=== PATIENT | male | born 2000 | race Caucasian/White ===

== ENCOUNTER 2019-07-26 12:50 | Inpatient (IN) ==
[2019-07-26 13:33] LABS: Basophils # (auto) 0.02 K/uL (0-0.2); Basophils % (auto) 0.2 %; Eosinophils # (auto) 0.24 K/uL (0-0.5); Eosinophils % (auto) 2.6 %; Hematocrit (blood only) 48.7 % (42-52); Hemoglobin 16.6 g/dL (14.0-18.0); Immature Granulocytes # (auto) 0.03 K/uL (0.00-0.02); Immature Granulocytes % (auto) 0.3 %; Lymphocytes # (auto) 2.27 K/uL (1.2-3.4); Lymphocytes % (auto) 24.5 %; Mean Corpuscular Hgb Conc 34.1 g/dL (32-36); Monocytes # (auto) 0.72 K/uL (0.11-0.59); Monocytes % (auto) 7.8 %; Neutrophils # (auto) 5.98 K/uL (1.4-6.5); Neutrophils % (auto) 64.6 %; Platelet Count 253 K/uL (130-400); RDW Coefficient of Variation 13.5 % (11.5-14.5); RDW Standard Deviation 41.6 fL (36.4-46.3); Red Blood Count 5.73 M/uL (4.7-6.1); White Blood Count 9.26 K/uL (4.8-10.8)
--- NOTE | 2019-07-26 13:44 | Emergency Department Note ---
History of Present Illness General Chief complaint: Mental Health Evaluation Stated complaint: SUICIDAL Time Seen by Provider: 07/26/19 13:01 History of Present Illness Provider complaint: Suicidal ideation. Onset (ago): week(s) 1 18-year-old male presents emergency department for suicidal ideation. Patient reports he was in feet suicidal for the last week. He states he feels depressed but only having 3 friends and states he hates his job at [employer]. 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 Patient denies any history of mental health illness or any mental health hospitalizations. He denies any changes in sleeping pattern, loss of interest, feeling guilty, changes in energy level, decreased concentration ability, change his appetite. He denies any homicidal or suicidal ideation. Patient does state he has access to many firearms. Home Medications Home Medications Medication Instructions Recorded Confirmed Type No Known Home Medications 07/26/19 07/26/19 History Allergies Allergy/AdvReac Type Severity Reaction Status Date / Time No Known Allergies Allergy Unverified 07/26/19 13:13 Past Med/Surg History Medical History (Updated 07/26/19 @ 16:28 by Levi Francois) No pertinent family history No pertinent past medical history Surgical History (Updated 07/26/19 @ 13:43 by Levi Francois) No pertinent past surgical history Social History Feels Safe at Home: Yes Smoking Status: Never smoker Review of Systems A total of 10 systems reviewed and were otherwise negative Physical Exam Vital Signs Vital Signs - 24 hr 07/26/19 12:55 07/26/19 15:20 Temperature 37.1 C Temperature Source Oral Pulse Rate 91 H Pulse Rate [Finger] 70 Respiratory Rate 20 18 Respiratory Effort / Characteristics Non-Labored Respiratory Depth Normal Blood Pressure 155/95 H Blood Pressure [Left Arm] 144/82 H Blood Pressure Mean 115 Blood Pressure Mean [Left Arm] 102 Pulse Oximetry 98 98 Oxygen Delivery Method Room Air Room Air Sepsis Recent Fever Within 48 Hours No Sepsis Action Taken by Nursing No Action Required Physical Exam GENERAL: Disheveled, dirty, and foul-smelling. HENT: Exam performed. - Head: Normocephalic and atraumatic. - Right Ear: External ear normal. No mastoid tenderness. - Left Ear: External ear normal. No mastoid tenderness. - Mouth/Throat: The oropharynx is clear and moist. No trismus in the jaw. No dental abscesses or uvula swelling. No oropharyngeal exudate or tonsillar abscesses. EYES: Conjunctivae and EOM are normal. Pupils are equal, round, and reactive to light. Right eye exhibits no discharge. Left eye exhibits no discharge. No scleral icterus. NECK: Normal range of motion. Neck supple. No JVD present. No spinous process tenderness present. No carotid bruit present. No rigidity. No tracheal deviation and normal range of motion present. No Brudzinski's sign and no Kernig's sign noted. CV: Normal rate, regular rhythm, normal heart sounds and intact distal pulses. There is no peripheral edema. Palpable radial pulses bue. PULM/CHEST: Effort normal and breath sounds normal. No respiratory distress. No stridor. He has no wheezes. He has no rales. - Chest Wall: He exhibits no tenderness. ABD: The abdomen is soft. Bowel sounds are normal. He has no distension. No mass is present. There is no tenderness. There is no rebound, no guarding, no Sue's sign and no tenderness at McBurney's point. Rovsig negative. MUSC/SKEL: Normal range of motion. There is no peripheral edema, tenderness or deformity. LYMPH: No cervical adenopathy. NEURO: He is alert and oriented to person, place, and time. He has normal strength. No cranial nerve deficit or sensory deficit. Coordination and gait normal. GCS eye subscore is 4. GCS verbal subscore is 5. GCS motor subscore is 6. Cerebellar tests wnl. SKIN: Skin is warm and dry. He is not diaphoretic. PSYCH: Appears depressed, positive for suicidal ideation. Course Course 1335: The patient was evaluated in room A6. A complete history and physical exam was performed. 1357: Labs within normal limits. Patient medically cleared. Patient will be evaluated by psychiatric gut snatcher. Patient placed in observation at this time. 1617: Patient admitted to the psychiatric floor. Medical Decision Making Laboratory Data Result diagrams: 07/26/19 13:20 07/26/19 13:20 Lab Results 07/26/19 07/26/19 07/26/19 Range/Units 13:05 13:05 13:20 WBC 9.26 (4.8-10.8) K/uL RBC 5.73 (4.7-6.1) M/uL Hgb 16.6 (14.0-18.0) g/dL Hct 48.7 (42-52) % MCV 85.0 (80-100) fL MCH 29.0 (25-34) pg MCHC 34.1 (32-36) g/dL RDW Std Deviation 41.6 (36.4-46.3) fL RDW Coeff of Ulices 13.5 (11.5-14.5) % Plt Count 253 (130-400) K/uL MPV 11.0 H (7.4-10.4) fL Immature Gran % (Auto) 0.3 % Neut % (Auto) 64.6 % Lymph % (Auto) 24.5 % [place]erry % (Auto) 7.8 % Eos % (Auto) 2.6 % Baso % (Auto) 0.2 % Immature Gran # (Auto) 0.03 H (0.00-0.02) K/uL Neut # (Auto) 5.98 (1.4-6.5) K/uL Lymph # (Auto) 2.27 (1.2-3.4) K/uL [place] # (Auto) 0.72 H (0.11-0.59) K/uL Eos # (Auto) 0.24 (0-0.5) K/uL Baso # (Auto) 0.02 (0-0.2) K/uL Sodium (136-145) mmol/L Potassium (3.5-5.1) mmol/L Chloride (98-107) mmol/L Carbon Dioxide (21-32) mmol/L Anion Gap (3-11) BUN (7-18) mg/dl Creatinine (0.6-1.4) mg/dl Est Cr Clr Drug Dosing ml/min Est GFR ( Amer) Est GFR (Non-Af Amer) BUN/Creatinine Ratio (10-20) Glucose (70-99) mg/dl Calcium (8.5-10.1) mg/dl Total Bilirubin (0.2-1) mg/dl AST (15-37) U/L ALT (12-78) U/L Alkaline Phosphatase (45-117) U/L Total Protein (6.4-8.2) gm/dl Albumin (3.4-5.0) gm/dl Globulin (2.5-4.0) gm/dl Albumin/Globulin Ratio (0.9-2) TSH (0.300-4.500) uIu/ml Urine Color Yellow Urine Appearance Clear (Clear) Urine pH 5.5 (4.5-7.5) Ur Specific [place] 1.024 (1.000-1.030) Urine Protein Negative (Negative) Urine Glucose (UA) Negative (Negative) Urine Ketones Negative (Negative) Urine Blood Negative (Negative) Urine Nitrite Negative (Negative) Urine Bilirubin Negative (Negative) Urine Urobilinogen Negative (Negative) Ur Leukocyte Esterase Negative (Negative) Salicylates (2.8-20) mg/dl Urine Opiates Screen Neg (Neg) Ur Methadone, Qual Neg (Neg) Acetaminophen (10-30) ug/ml Urine Barbiturates Neg (Neg) Ur Phencyclidine (PCP) Neg (Neg) U Amphetamin/Meth Scrn Neg (Neg) MDMA (Ecstasy) Screen Neg (Neg) U Benzodiazepines Scrn Neg (Neg) Ur Cocaine Metabolite Neg (Neg) U Marijuana (THC) Screen Neg (Neg) Ethyl Alcohol mg/dL (0-3) mg/dl 07/26/19 07/26/19 07/26/19 Range/Units 13:20 13:20 13:20 WBC (4.8-10.8) K/uL RBC (4.7-6.1) M/uL Hgb (14.0-18.0) g/dL Hct (42-52) % MCV (80-100) fL MCH (25-34) pg MCHC (32-36) g/dL RDW Std Deviation (36.4-46.3) fL RDW Coeff of Ulices (11.5-14.5) % Plt Count (130-400) K/uL MPV (7.4-10.4) fL Immature Gran % (Auto) % Neut % (Auto) % Lymph % (Auto) % [place] % (Auto) % Eos % (Auto) % Baso % (Auto) % Immature Gran # (Auto) (0.00-0.02) K/uL Neut # (Auto) (1.4-6.5) K/uL Lymph # (Auto) (1.2-3.4) K/uL [place] # (Auto) (0.11-0.59) K/uL Eos # (Auto) (0-0.5) K/uL Baso # (Auto) (0-0.2) K/uL Sodium 142 (136-145) mmol/L Potassium 3.9 (3.5-5.1) mmol/L Chloride 108 H (98-107) mmol/L Carbon Dioxide 28 (21-32) mmol/L Anion Gap 6.0 (3-11) BUN 15 (7-18) mg/dl Creatinine 0.86 (0.6-1.4) mg/dl Est Cr Clr Drug Dosing 172.9 ml/min Est GFR ( Amer) 145.7 Est GFR (Non-Af Amer) 125.7 BUN/Creatinine Ratio 17.5 (10-20) Glucose 104 H (70-99) mg/dl Calcium 9.5 (8.5-10.1) mg/dl Total Bilirubin 0.5 (0.2-1) mg/dl AST 28 (15-37) U/L ALT 72 (12-78) U/L Alkaline Phosphatase 108 (45-117) U/L Total Protein 7.8 (6.4-8.2) gm/dl Albumin 4.3 (3.4-5.0) gm/dl Globulin 3.5 (2.5-4.0) gm/dl Albumin/Globulin Ratio 1.2 (0.9-2) TSH 1.210 (0.300-4.500) uIu/ml Urine Color Urine Appearance (Clear) Urine pH (4.5-7.5) Ur Specific [place] (1.000-1.030) Urine Protein (Negative) Urine Glucose (UA) (Negative) Urine Ketones (Negative) Urine Blood (Negative) Urine Nitrite (Negative) Urine Bilirubin (Negative) Urine Urobilinogen (Negative) Ur Leukocyte Esterase (Negative) Salicylates < 1.7 L (2.8-20) mg/dl Urine Opiates Screen (Neg) Ur Methadone, Qual (Neg) Acetaminophen < 2 L (10-30) ug/ml Urine Barbiturates (Neg) Ur Phencyclidine (PCP) (Neg) U Amphetamin/Meth Scrn (Neg) MDMA (Ecstasy) Screen (Neg) U Benzodiazepines Scrn (Neg) Ur Cocaine Metabolite (Neg) U Marijuana (THC) Screen (Neg) Ethyl Alcohol mg/dL < 3.0 (0-3) mg/dl MDM Narrative Observation note Indication: Psych eval/placement Patient, with no significant past medical history was first seen at 1335 hrs and the observation time began at 1357 hrs and was necessary in order to have psych evaluation completed . Upon re-evaluation, 2 hours and 20 minutes hours of observation revealed that the patient should be admitted to the psychiatric floor 3 S. Disposition date and time July 26, 2019 1617. Impression & Plan Depression with suicidal ideation Discharge Plan Visit Data Chief Complaint: Mental Health Evaluation Stated Complaint: SUICIDAL ED Provider: Levi Francois Discharge Problem: Depression with suicidal ideation Patient Disposition: Admitted As Inpatient Forms Stand Alone Forms: [facility], Suicide Prevention Resources Prescriptions Prescriptions: No Action No Known Home Medications RF: 0 Referrals Referrals: PCP,NO [Primary Care Provider] -
[2019-07-26 13:45] LABS: Appearance Urine Clear (Clear); Bilirubin Urine Negative (Negative); Blood Urine Negative (Negative); Color Urine Yellow; Glucose Urine UA Negative (Negative); Ketones Urine Negative (Negative); Leukocyte Esterase Urine Negative (Negative); Nitrite Urine Negative (Negative); Protein Urine Negative (Negative); Specific Gravity Urine 1.024 (1.000-1.030); Urobilinogen Urine Negative (Negative); pH Urine 5.5 (4.5-7.5)
[2019-07-26 13:54] LABS: Acetaminophen < 2 ug/ml (10-30); Albumin Level 4.3 gm/dl (3.4-5.0); BUN Creatinine Ratio 17.5 (10-20); Calcium 9.5 mg/dl (8.5-10.1); Creatinine Clr Calc Pharmacy 172.9 ml/min; Est GFR (African American) 145.7; Est GFR (Non-African American) 125.7; Potassium 3.9 mmol/L (3.5-5.1); Salicylate < 1.7 mg/dl (2.8-20)
[2019-07-26 13:58] LABS: Amphetamines+Metham, Urine Neg (Neg); Barbiturates, Urine Neg (Neg); Benzodiazepine, Urine Neg (Neg); Cocaine, Urine Neg (Neg); MDMA (Ecstacy), Urine Neg (Neg); Methadone, Urine Neg (Neg); Opiate, Urine Neg (Neg); Phencyclidine, Urine Neg (Neg)
[2019-07-26 14:04] LABS: Albumin Globulin Ratio 1.2 (0.9-2); Bilirubin,Total 0.5 mg/dl (0.2-1); Globulin 3.5 gm/dl (2.5-4.0); Thyroid Stimulating Hormone 1.21 uIu/ml (0.300-4.500); Total Protein 7.8 gm/dl (6.4-8.2)
[2019-07-26] MEDS ORDERED: SODIUM CHLORIDE 0.65% NA SOLN 45 ML (OCEAN) PRN (17:44)
[2019-07-26] MEDS ORDERED: MAGNESIUM HYDROXIDE SUSP 30 ML UDC PO PRN (17:44)
[2019-07-26] MEDS ORDERED: ACETAMINOPHEN 325 MG TAB PO PRN (17:44)
[2019-07-26] MEDS ORDERED: BISMUTH SUBSALICYLATE PER ML OMNICELL CHARGE PO PRN (17:44)
[2019-07-26] MEDS ORDERED: ALUMINUM/MAGNESIUM SUSP 30 ML UDC PO PRN (17:44)
--- NOTE | 2019-07-27 11:49 | History & Physical ---
Date of Service July 27, 2019 Impression / Recommendations Impression 18 yo male with vegetative symptoms of depression and recurrent thoughts of cutting. He denies any history of manic symptoms. There is a family history of bipolar disorder. He is ambivalent about medication at this time given oral sensitivities with high functioning autism spectrum disorder. (1) Depression with suicidal ideation: The patient was admitted to the [facility] on q15 min checks (behavioral with suicide precautions) for safety. The patient will participate in group, recreational, and milieu therapies and will be offered additional individual and family sessions as clinically appropriate. Discussed a possible trial of Wellbutrin vs Prozac, will check with family if preference of antidepressant, Prozac does have long t 1/2 should he become activated, Effexor XR also a capsule should he refuse Wellbutrin. Patient then stated he though he's taken that before. Inventory Assets Strengths: working, sought care voluntarily, family support Risk Factors Assessment Male: Yes : Yes Do You Have Access To A Gun?: No (mother secured his pistol and a double barrel shot gun he keeps in room.) Mental Health Diagnoses: Yes Substance Use Disorders: No Previous Attempt: No Protective Factors Assessment Employed: Yes (full-time @[employer]) Supportive Family: Yes Psychiatric History Identifying Data LETITIA BASILIO is a 18-year-old M who currently lives in [place] with parents, has a history of autism dx or traits (Aspergers), and was admitted on 07/26/19 15:55 on a 201 voluntary commitment for SI with plan to cut self. Chief Complaint "Yeah, I signed in at 4:12 pm, I guess I'm OK my mom found me with the knife". History of Present Illness States that he was been feeling stressed due to some changes at work at [employer] due to the pandemic. 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 They have safety cutters and he removed the plastic guard at which time he realized the blade was "too small" to do anything. He asked his mother to help him start seeing his therapist again and they were able to connect via Zoom session. Since that time he has been persistently depressed, feels that he has less energy, irritable about work in general, just wants to play video games at home. Yesterday his SI recurred, no specific trigger and states that he had a knife out "thinking about what to do with it" and his mom intervened. Interests and friendships are rather limited at baseline so not necessarily changed but does endorse some degree of anhedonia. Appetite "same", light sleeper. He still has aversions to swallowing things/including pills and prefers capsules that "don't make me sick". He is somewhat ambivalent about degree of involvement in family in medical decision making. Past Psychiatric History Current Psychiatric Diagnosis: "slight Autism" per Mom Outpatient [facility]: [facility] Previous Psych Admissions: none Do You Have Access To A Gun?: No (mother secured his pistol and a double barrel shot gun he keeps in room.) History of Previous Suicide Attempt: No Describe Attempts in the Past: Denies Past Medication Trials: states he was tried on stimulant or perhaps other meds for ADHD in middle school, mainly as low focus/energy during day, states did not tolerate well. Past Head Trauma/Neuro History History of Concussion/Seizure: No Allergies Allergy/AdvReac Type Severity Reaction Status Date / Time No Known Allergies Allergy Unverified 07/26/19 13:13 Home Medications Home Medications Medication Instructions Recorded Confirmed Type No Known Home Medications 07/26/19 07/26/19 History Family History Family History of: Bipolar Family Mental Health History Comment: Mother has Bipolar Disorder, states his older sister is also bipolar Alcohol History Hx of Alcohol Use Over the Past 12 Months: No AUDIT Total Score: 0 Smoking Use Have You Smoked or Used Tobacco Products in the Last 30 Days: No Smoking Status: Never smoker Substance History Hx of Prescription Med Misuse Over the Past 12 Months: No Hx of Over the Counter Med Misuse Over the Past 12 Months: No Hx of Inhalent Misuse Over the Past 12 Months: No Hx of Organic Substance Use Over the Past 12 Months: No Hx of Illegal Substances/Street Drug Use Over Past 12 Months: No Problems as a Result of Past Substance Use: None Identified Personal History Living Arrangements: Home Highest Grade Completed: High School Graduate 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[employer], 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) Marital Status: Single Number Of Children: none Beliefs That Will Affect Care: None Current Legal Problems: No Hx Legal Problems: No Hx Traumatic Life Events: No Patient History Medical History (Updated 07/26/19 @ 16:28 by Levi Francois) No pertinent family history No pertinent past medical history Surgical History (Updated 07/26/19 @ 13:43 by Levi Francois) No pertinent past surgical history Social History Preferred Language: Colombian Communication Ability: Effective Mailroom Manager Required: No Beliefs That Will Affect Care: None Feels Safe at Home: Yes Smoking Status: Never smoker Review of Systems Review of Systems: All systems reviewed & are unremarkable except as noted in HPI & below Physical Exam Psychiatric: Orientation: alert and oriented x 3 Apperance: appropriately dressed and appropriately groomed Eye Contact: + poor eye contact Motor Behavior: no abnormal motor movements Speech: normal rate/rhythm/volume of speech Affect: + flat affect Mood: + depressed mood Thought Process: linear/logical thought process Thought Content: reality based without delusions ongoing SI, no plan or intent on unit, unable to contract for safety outside of the hospital. Homicidal Thoughts: denies homicidal thoughts Hallucinations: no auditory hallucinations and no visual hallucinations Cognition: recent memory grossly intact, remote memory grossly intact, attention grossly intact and language grossly intact Estimated Intelligence: consistent with education level Insight: + limited insight Judgement: + limited judgement Vital Signs (Past 24 Hours): Last Vital Signs Temp 36.6 C 07/27/19 06:54 Pulse 68 07/27/19 06:55 Resp 18 07/27/19 06:54 BP 120/79 07/27/19 06:55 Pulse Ox 100 07/26/19 17:29 Exam Statement: A physical exam was performed in the ED by Levi Francois for the purposes of medical clearance. I accept that physical as correct and adequate for the purposes of the inpatient physical exam. Results & Data ([facility]) Laboratory Results Laboratory Results - last 24 hr 07/26/19 07/26/19 07/26/19 13:05 13:05 13:20 WBC 9.26 RBC 5.73 Hgb 16.6 Hct 48.7 MCV 85.0 MCH 29.0 MCHC 34.1 RDW Std Deviation 41.6 RDW Coeff of Ulices 13.5 Plt Count 253 MPV 11.0 H Immature Gran % (Auto) 0.3 Neut % (Auto) 64.6 Lymph % (Auto) 24.5 [place] % (Auto) 7.8 Eos % (Auto) 2.6 Baso % (Auto) 0.2 Immature Gran # (Auto) 0.03 H Neut # (Auto) 5.98 Lymph # (Auto) 2.27 [place] # (Auto) 0.72 H Eos # (Auto) 0.24 Baso # (Auto) 0.02 Sodium Potassium Chloride Carbon Dioxide Anion Gap BUN Creatinine Est Cr Clr Drug Dosing Est GFR ( Amer) Est GFR (Non-Af Amer) BUN/Creatinine Ratio Glucose Calcium Total Bilirubin AST ALT Alkaline Phosphatase Total Protein Albumin Globulin Albumin/Globulin Ratio TSH Urine Color Yellow Urine Appearance Clear Urine pH 5.5 Ur Specific [place] 1.024 Urine Protein Negative Urine Glucose (UA) Negative Urine Ketones Negative Urine Blood Negative Urine Nitrite Negative Urine Bilirubin Negative Urine Urobilinogen Negative Ur Leukocyte Esterase Negative Salicylates Urine Opiates Screen Neg Ur Methadone, Qual Neg Acetaminophen Urine Barbiturates Neg Ur Phencyclidine (PCP) Neg U Amphetamin/Meth Scrn Neg MDMA (Ecstasy) Screen Neg U Benzodiazepines Scrn Neg Ur Cocaine Metabolite Neg U Marijuana (THC) Screen Neg Ethyl Alcohol mg/dL 07/26/19 07/26/19 07/26/19 13:20 13:20 13:20 WBC RBC Hgb Hct MCV MCH MCHC RDW Std Deviation RDW Coeff of Ulices Plt Count MPV Immature Gran % (Auto) Neut % (Auto) Lymph % (Auto) [place] % (Auto) Eos % (Auto) Baso % (Auto) Immature Gran # (Auto) Neut # (Auto) Lymph # (Auto) [place] # (Auto) Eos # (Auto) Baso # (Auto) Sodium 142 Potassium 3.9 Chloride 108 H Carbon Dioxide 28 Anion Gap 6.0 BUN 15 Creatinine 0.86 Est Cr Clr Drug Dosing 172.9 Est GFR ( Amer) 145.7 Est GFR (Non-Af Amer) 125.7 BUN/Creatinine Ratio 17.5 Glucose 104 H Calcium 9.5 Total Bilirubin 0.5 AST 28 ALT 72 Alkaline Phosphatase 108 Total Protein 7.8 Albumin 4.3 Globulin 3.5 Albumin/Globulin Ratio 1.2 TSH 1.210 Urine Color Urine Appearance Urine pH Ur Specific [place] Urine Protein Urine Glucose (UA) Urine Ketones Urine Blood Urine Nitrite Urine Bilirubin Urine Urobilinogen Ur Leukocyte Esterase Salicylates < 1.7 L Urine Opiates Screen Ur Methadone, Qual Acetaminophen < 2 L Urine Barbiturates Ur Phencyclidine (PCP) U Amphetamin/Meth Scrn MDMA (Ecstasy) Screen U Benzodiazepines Scrn Ur Cocaine Metabolite U Marijuana (THC) Screen Ethyl Alcohol mg/dL < 3.0 Current Inpatient Medications Current Inpatient Medications: Current Inpatient Medications Acetaminophen (Tylenol) 650 mg PO Q4H PRN PRN Reason: Headache or Minor Fever Stop: 08/25/19 17:43 Al Hydrox/Mg Hydrox/Simethicone (Maalox) 30 ml PO Q4H PRN PRN Reason: GI Upset Stop: 08/25/19 17:43 Bismuth Subsalicylate (Kaopectate) 15 ml PO PRN PRN PRN Reason: Loose Stool Stop: 08/25/19 17:43 Hydroxyzine HCl (Vistaril) 50 mg PO HSZ PRN PRN Reason: Insomnia Stop: 08/25/19 17:43 Hydroxyzine HCl (Vistaril) 25 mg PO Q4H PRN PRN Reason: Anxiety Stop: 08/25/19 17:43 Magnesium Hydroxide (Milk Of Magnesia) 30 ml PO DAILY PRN PRN Reason: Constipation Stop: 08/25/19 17:43 Sodium Chloride ([place] Nasal) 1 - 2 sprays NA PRN PRN PRN Reason: Nasal Dryness/Congestion Stop: 08/25/19 17:43
[2019-07-28] MEDS: FLUOXETINE HCL 10 MG CAP PO SCH (09:40)
--- NOTE | 2019-07-28 13:19 | Psychiatric Progress Note ---
Date of Service July 28, 2019 Impression / Recommendations Impression 18 yo male with vegetative symptoms of depression and recurrent thoughts of cutting. He denies any history of manic symptoms. There is a family history of bipolar disorder. He reports oral sensitivities with high functioning autism spectrum disorder. (1) Depression with suicidal ideation: 07/26 The patient was admitted to the [facility] ([facility]) on q15 min checks (behavioral with suicide precautions) for safety. The patient will participate in group, recreational, and milieu therapies and will be offered additional individual and family sessions as clinically appropriate. Discussed a possible trial of Wellbutrin vs Prozac, will check with family if preference of antidepressant, Prozac does have long t 1/2 should he become activated, Effexor XR also a capsule should he refuse Wellbutrin. Patient then stated he thought he's taken that before. 07/27 Risks/benefits/alternatives reviewed re: antidepressants for the treatment of depression and/or anxiety. Discussion included but was not limited to FDA warnings re: suicidality in adolescents and young adults. The patient agreed to a trial of Prozac 10 mg daily. Inventory Assets Strengths: working, sought care voluntarily, family support Risk Factors Assessment Male: Yes : Yes Do You Have Access To A Gun?: No (mother secured his pistol and a double barrel shot gun he keeps in room.) Mental Health Diagnoses: Yes Substance Use Disorders: No Previous Attempt: No Protective Factors Assessment Employed: Yes (full-time @[employer]) Supportive Family: Yes Interval History Chief Complaint "bored, homesick". Review of Systems Sleep Information Total Hours of Sleep: 7.25 Meal Information Percent Meal Consumed - Breakfast: 100 Percent Meal Consumed - Lunch: 25 Percent Meal Consumed - Dinner: 100 Subjective Subjective Patient was seen & assessed and interval progress reviewed with nursing. He denies suicidal thoughts last pm or this am. He is agreeable to med trial and per staff family is supportive of this. He prefers to mainly do puzzles here. Doesn't elaborate in conversation. Physical Exam Psychiatric Orientation: alert and oriented x 3 Apperance: appropriately dressed and appropriately groomed Eye Contact: + poor eye contact Motor Behavior: no abnormal motor movements Speech: normal rate/rhythm/volume of speech Affect: + flat affect Mood: + depressed mood Thought Process: linear/logical thought process Thought Content: reality based without delusions Suicidal Thoughts: denies suicidal thoughts Homicidal Thoughts: denies homicidal thoughts Hallucinations: no auditory hallucinations and no visual hallucinations Cognition: recent memory grossly intact, remote memory grossly intact, attention grossly intact and language grossly intact Estimated Intelligence: consistent with education level Insight: + limited insight Judgement: + limited judgement Vital Signs (Past 24 Hours) Last Vital Signs Temp 36.6 C 07/28/19 06:52 Pulse 66 07/28/19 06:53 Resp 18 07/28/19 06:52 BP 126/79 07/28/19 06:53 Pulse Ox 100 07/26/19 17:29 Results & Data ([facility]) Current Inpatient Medications Current Inpatient Medications: Current Inpatient Medications Acetaminophen (Tylenol) 650 mg PO Q4H PRN PRN Reason: Headache or Minor Fever Stop: 08/25/19 17:43 Al Hydrox/Mg Hydrox/Simethicone (Maalox) 30 ml PO Q4H PRN PRN Reason: GI Upset Stop: 08/25/19 17:43 Bismuth Subsalicylate (Kaopectate) 15 ml PO PRN PRN PRN Reason: Loose Stool Stop: 08/25/19 17:43 Fluoxetine HCl (Prozac) 10 mg PO QAM NETO Stop: 08/27/19 09:14 Last Admin: 07/28/19 09:40 Dose: 10 mg Documented by: Hydroxyzine HCl (Vistaril) 25 mg PO Q4H PRN PRN Reason: Anxiety Stop: 08/25/19 17:43 Hydroxyzine HCl (Vistaril) 25 mg PO HSZ NETO Stop: 08/27/19 21:59 Magnesium Hydroxide (Milk Of Magnesia) 30 ml PO DAILY PRN PRN Reason: Constipation Stop: 08/25/19 17:43 Sodium Chloride ([place] Nasal) 1 - 2 sprays NA PRN PRN PRN Reason: Nasal Dryness/Congestion Stop: 08/25/19 17:43 Mental Health & Subst Abuse Tx Therapist Name of Therapist: [employer] Heaven Rai Therapist's Date of Therapist Appointment: 07/28/19 Therapy Appointment Comment: [address], [address], [place] [address] Slot Machine Department Floorperson Name of Slot Machine Department Floorperson: None Post Discharge Appointments Primary Care Physician Name Of Family Doctor: None Contact Information Discharge Discharge Address: [address] [place] [address], [address], [place] [address]
[2019-07-29] MEDS: FLUOXETINE HCL 10 MG CAP PO SCH (08:29)
--- NOTE | 2019-07-29 12:23 | Psychiatric Progress Note ---
Date of Service July 29, 2019 Impression / Recommendations Impression 18 yo male who has a history of autism spectrum disorder and presented with vegetative symptoms of depression and recurrent thoughts of cutting in the context of not wanting to work after starting a new job at [employer]. He has been started on fluoxetine, which she is tolerating well, and had a family meeting with his mother today. He has limited engagement in treatment. (1) Depression with suicidal ideation: 07/26 The patient was admitted to the [facility] ([facility]) on q15 min checks (behavioral with suicide precautions) for safety. The patient will participate in group, recreational, and milieu therapies and will be offered additional individual and family sessions as clinically appropriate. Discussed a possible trial of Wellbutrin vs Prozac, will check with family if preference of antidepressant, Prozac does have long t 1/2 should he become activated, Effexor XR also a capsule should he refuse Wellbutrin. Patient then stated he thought he's taken that before. 07/27 Risks/benefits/alternatives reviewed re: antidepressants for the treatment of depression and/or anxiety. Discussion included but was not limited to FDA warnings re: suicidality in adolescents and young adults. The patient agreed to a trial of Prozac 10 mg daily. 07/28 -continue fluoxetine, refer for outpatient psychiatry. -Care coordinated with his therapist, Niels Rai, and [employer]. -Family meeting held with the patient's mother. She confirmed that guns and weapons (knives) have been removed from the home. Inventory Assets Strengths: working, sought care voluntarily, family support Risk Factors Assessment Male: Yes : Yes Do You Have Access To A Gun?: No (mother secured his pistol and a double barrel shot gun he keeps in room.) Mental Health Diagnoses: Yes Substance Use Disorders: No Previous Attempt: No Protective Factors Assessment Employed: Yes (full-time @[employer]) Supportive Family: Yes Interval History Identifying Information LETITIA BASILIO is a 18-year-old M who currently lives in [place] with his parents, has a history of autism spectrum disorder, and was admitted on 07/26/19 15:55 on a 201 voluntary commitment for SI with plan to cut himself. Chief Complaint "Alright for a while, feeling pretty bad today". Review of Systems Notes Pain in great toe, denies GI symptoms Sleep Information Total Hours of Sleep: 6.5 Sleep Comments: pt on q-15 minute checks Meal Information Percent Meal Consumed - Breakfast: 100 Percent Meal Consumed - Lunch: 100 Percent Meal Consumed - Dinner: 100 Subjective Subjective Patient was seen & assessed and interval progress reviewed with treatment team. Staff report he is attending and participating in groups, played games with peers, and talked about playing video games with friends and wanting his mother to see that as socialization, not an addiction to video games. On my assessment, he had just come from a family meeting with his mother and the social work specialist, but could not/would not give any information about what was discussed, "I don't know." He states that mood he says he does not really talk to his family, and is unable to review any coping skills he could use if feeling overwhelmed/suicidal, or how his different options for managing his stressors. He states his primary stressor is that he does not want to work, but denies that he has been looking for other jobs or has any ideas of how to handle this, or what his other options are. He says he has "no coping skills," and is unable to identify any treatment goals. He denies suicidal thoughts, and says he does not think that he would act on these thoughts because "that day I just sat down on the floor." He reports pain in his big toe, which he states he ran over with a shopping cart, later states he has an ingrown toenail. Physical Exam Psychiatric Orientation: alert and cooperative (Partially - gives vague, brief answers) Apperance: appropriately dressed and appeared stated age; + inappropriately groomed Malodorous. Lying in bed, awake, in no acute distress Eye Contact: + poor eye contact Makes no eye contact, averts gaze Motor Behavior: no abnormal motor movements Minimal, gruff/gravelly voice Affect: + irritable affect and + constricted affect Thought Process: + concrete thought process Thought Content: + cognitive distortions Suicidal Thoughts: denies suicidal thoughts Homicidal Thoughts: denies homicidal thoughts Hallucinations: no auditory hallucinations and no visual hallucinations Cognition: attention grossly intact and language grossly intact Insight: + limited insight Judgement: + limited judgement Vital Signs (Past 24 Hours) Last Vital Signs Temp 36.5 C 07/29/19 06:45 Pulse 73 07/29/19 06:46 Resp 18 07/29/19 06:45 BP 125/71 07/29/19 06:46 Pulse Ox 100 07/26/19 17:29 Results & Data ([facility]) Current Inpatient Medications Current Inpatient Medications: Current Inpatient Medications Acetaminophen (Tylenol) 650 mg PO Q4H PRN PRN Reason: Headache or Minor Fever Stop: 08/25/19 17:43 Al Hydrox/Mg Hydrox/Simethicone (Maalox) 30 ml PO Q4H PRN PRN Reason: GI Upset Stop: 08/25/19 17:43 Bismuth Subsalicylate (Kaopectate) 15 ml PO PRN PRN PRN Reason: Loose Stool Stop: 08/25/19 17:43 Fluoxetine HCl (Prozac) 10 mg PO QAM NETO Stop: 08/27/19 09:14 Last Admin: 07/29/19 08:29 Dose: 10 mg Documented by: Hydroxyzine HCl (Vistaril) 25 mg PO Q4H PRN PRN Reason: Anxiety Stop: 08/25/19 17:43 Hydroxyzine HCl (Vistaril) 25 mg PO HSZ NETO Stop: 08/27/19 21:59 Last Admin: 07/28/19 21:04 Dose: 25 mg Documented by: Magnesium Hydroxide (Milk Of Magnesia) 30 ml PO DAILY PRN PRN Reason: Constipation Stop: 08/25/19 17:43 Sodium Chloride ([place] Nasal) 1 - 2 sprays NA PRN PRN PRN Reason: Nasal Dryness/Congestion Stop: 08/25/19 17:43 Mental Health & Subst Abuse Tx Therapist Name of Therapist: [employer] Niels Rai Therapist's Date of Therapist Appointment: 07/28/19 Therapy Appointment Comment: [address], [address], [place] [address] Bottling Machine Operator Name of Bottling Machine Operator: None Post Discharge Appointments Primary Care Physician Name Of Family Doctor: None Contact Information Discharge Discharge Address: [address] [place] [address], [address], [place] [address]
[2019-07-30] MEDS: FLUOXETINE HCL 10 MG CAP PO SCH (08:47)
--- NOTE | 2019-07-30 12:52 | Psychiatric Progress Note ---
Date of Service July 30, 2019 Impression / Recommendations Impression 18 yo male who has a history of autism spectrum disorder and presented with vegetative symptoms of depression and recurrent thoughts of cutting in the context of not wanting to work after starting a new job at [employer]. He has been started on fluoxetine, which she is tolerating well, and has agreed to increase his professional outpatient supports. He will begin meeting with his therapist weekly and has been referred for outpatient psychiatric medication management. Family meeting with parents was conducted, though patient demonstrated limited engagement. He again has a negative phone call with his mother last evening. We are recommending additional coordination with his parents prior to discharge, as strain within the relationship was a stressor that contributed to his hospitalization in the first place. Consider discharge tomorrow, if patient demonstrates increased engagement in treatment. (1) Depression with suicidal ideation: 07/26 The patient was admitted to the [facility] ([facility] health unit) on q15 min checks (behavioral with suicide precautions) for safety. The patient will participate in group, recreational, and milieu therapies and will be offered additional individual and family sessions as clinically appropriate. Discussed a possible trial of Wellbutrin vs Prozac, will check with family if preference of antidepressant, Prozac does have long t 1/2 should he become activated, Effexor XR also a capsule should he refuse Wellbutrin. Patient then stated he thought he's taken that before. 07/27 Risks/benefits/alternatives reviewed re: antidepressants for the treatment of depression and/or anxiety. Discussion included but was not limited to FDA warnings re: suicidality in adolescents and young adults. The patient agreed to a trial of Prozac 10 mg daily. 07/28 -continue fluoxetine, refer for outpatient psychiatry. -Care coordinated with his therapist, Niels Rai, and [employer]. -Family meeting held with the patient's mother. She confirmed that guns and weapons (knives) have been removed from the home. 07/29 - Continue current medication regimen - Discharge timeline discussed with patient and mother, as patient had more limited engagement in treatment yesterday and did not participate fully in the scheduled family meeting. Discharge and safety planning goals were reviewed again with the patient. - Recommended patient attempt to communicate with his parents again, possibly even engaging in an additional family meeting before discharge - as stressors with parents were a contributing factor for his admission to begin with - PCP appointment scheduled to allow for further work-up of testicular lump reported by patient on admission Inventory Assets Strengths: working, sought care voluntarily, family support Risk Factors Assessment Male: Yes : Yes Do You Have Access To A Gun?: No (mother secured his pistol and a double barrel shot gun he keeps in room.) Mental Health Diagnoses: Yes Substance Use Disorders: No Previous Attempt: No Protective Factors Assessment Employed: Yes (full-time @[employer]) Supportive Family: Yes Interval History Identifying Information LETITIA BASILIO is a 18-year-old M who currently lives in [place] with his parents, has a history of autism spectrum disorder, and was admitted on 07/26/19 15:55 on a 201 voluntary commitment for SI with plan to cut himself. Chief Complaint "I'm alright. Pretty bored." Review of Systems Notes Constitutional: denied Cardiovascular: denied Respiratory: denied Gastrointestinal: denied Neurological: denied Psychiatric: denies symptoms other than stated above Total of at least 10 systems reviewed, pertinent positives as above and in HPI. Sleep Information Total Hours of Sleep: 6.5 Sleep Comments: pt on q-15 minute checks Meal Information Percent Meal Consumed - Breakfast: 100 Percent Meal Consumed - Lunch: 90 Percent Meal Consumed - Dinner: 100 Nutrition Comment: per meal record Subjective Subjective Patient was seen & assessed and interval progress reviewed with treatment team. Staff reports the patient continues to endorse disagreement with his parents. He continues to struggle with stressors related to his employment, and is reporting his desire is not to return to [employer] though denies alternative plans at this point. Patient did have a family meeting scheduled with his parents yesterday; however, his participation was limited and he reportedly did not verbalize much during the meeting. His participation in groups was also reported to be limited yesterday. Patient was seen today to assess progress since admission. Patient did permit Emely Kumari PA-C to observe today's encounter. Patient states that he is feeling "alright" but also admits to feeling "pretty bored." When this provider asked about specific stressors leading to his hospitalization, patient states "work, and I do not have many friends." Patient does admit that in some ways his mood has improved since working at [employer], as "I used to just sit around the house feeling worthless." The patient also admits that his job is stressful and that he does not enjoy it. Patient states that they did discuss his employment during the family meeting yesterday; however, "my mom was being really pushy, so I did not want to keep talking." Patient states that he is aware that his parents continue to support him, as long as he is working towards a goal of employment or furthering his education. Patient states that while he is still not sure what he wants to do, he does believe he would like to take some time off from [employer] and search for a different job. Patient does deny suicidal ideation, and states he feels comfortable with discharge "as soon as possible." This provider did discuss with the patient concerns verbalized by his mother. Patient was informed of his parent's concerns that he was not quite himself yesterday, that he did not participate in group programming, and also that he had had a rather negative phone meeting with his mother last evening. We discussed the importance of outpatient supports and patient was encouraged to reach out to his parents and work towards reconciliation. Patient does admit that he did not contribute much to the family meeting, and was able to verbalize understanding that open communication with his parents would better facilitate his transition home at discharge. Patient denies any issues related to medications, and is agreeable to following up with an outpatient therapist and psychiatric prescriber. Patient denies specific needs or concerns at this time. Physical Exam Psychiatric Orientation: alert, oriented x 3 and cooperative (Superficially) Apperance: appropriately dressed and appeared stated age; + inappropriately groomed (malodorous) Eye Contact: + poor eye contact (Avoids eye contact for most of conversation) Motor Behavior: no abnormal motor movements (Observe while sitting upright on his bed) Speech: normal rate/rhythm/volume of speech (Seemingly more verbal today) Affect: + blunted affect Mood: no depressed mood ("alright, just bored") and no anxious mood Thought Process: goal directed thought process and + concrete thought process Thought Content: + cognitive distortions; not paranoid and no hopelessness Suicidal Thoughts: denies suicidal thoughts and denies suicidal intent Homicidal Thoughts: denies homicidal thoughts Hallucinations: no auditory hallucinations and no visual hallucinations Cognition: attention grossly intact and language grossly intact Insight: + limited insight Judgement: + limited judgement Vital Signs (Past 24 Hours) Last Vital Signs Temp 36.6 C 07/30/19 06:41 Pulse 87 07/30/19 06:41 Resp 18 07/30/19 06:41 BP 126/75 07/30/19 06:41 Pulse Ox 100 07/26/19 17:29 Results & Data ([facility]) Current Inpatient Medications Current Inpatient Medications: Current Inpatient Medications Acetaminophen (Tylenol) 650 mg PO Q4H PRN PRN Reason: Headache or Minor Fever Stop: 08/25/19 17:43 Al Hydrox/Mg Hydrox/Simethicone (Maalox) 30 ml PO Q4H PRN PRN Reason: GI Upset Stop: 08/25/19 17:43 Bismuth Subsalicylate (Kaopectate) 15 ml PO PRN PRN PRN Reason: Loose Stool Stop: 08/25/19 17:43 Fluoxetine HCl (Prozac) 10 mg PO QAM NETO Stop: 08/27/19 09:14 Last Admin: 07/30/19 08:47 Dose: 10 mg Documented by: Hydroxyzine HCl (Vistaril) 25 mg PO Q4H PRN PRN Reason: Anxiety Stop: 08/25/19 17:43 Hydroxyzine HCl (Vistaril) 25 mg PO HSZ NETO Stop: 08/27/19 21:59 Last Admin: 07/29/19 21:17 Dose: 25 mg Documented by: Magnesium Hydroxide (Milk Of Magnesia) 30 ml PO DAILY PRN PRN Reason: Constipation Stop: 08/25/19 17:43 Sodium Chloride ([place] Nasal) 1 - 2 sprays NA PRN PRN PRN Reason: Nasal Dryness/Congestion Stop: 08/25/19 17:43 Mental Health & Subst Abuse Tx Psychiatrist Name of Psychiatrist: Emely Ch Psychiatrist's Date of Appointment with Psychiatrist: 08/05/19 Time of Appointment with Psychiatrist: 2:40pm Psychiatric Appointment Comment: Zoom meeting Therapist Name of Therapist: Dima Rai Therapist's Date of Therapist Appointment: 08/04/19 Time of Therapist Appointment: 3:00pm Therapy Appointment Comment: [address], [address], [place] [address] Explosive Expert Name of Explosive Expert: None Post Discharge Appointments Primary Care Physician Name Of Family Doctor: Surendra You Primary [facility] Date of Appointment with PCP: 08/06/19 Provider Appointment Comment: [address] [place] [address] Contact Information Discharge Discharge Address: [address] [place] [address], [place] [address]
[2019-07-31] MEDS: FLUOXETINE HCL 10 MG CAP PO SCH (08:31)
--- NOTE | 2019-07-31 08:36 | Discharge Summary ---
Date of Service July 31, 2019 History of Present Illness States that he was been feeling stressed due to some changes at work at [employer] due to the pandemic. 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 They have safety cutters and he removed the plastic guard at which time he realized the blade was "too small" to do anything. He asked his mother to help him start seeing his therapist again and they were able to connect via Zoom session. Since that time he has been persistently depressed, feels that he has less energy, irritable about work in general, just wants to play video games at home. Yesterday his SI recurred, no specific trigger and states that he had a knife out "thinking about what to do with it" and his mom intervened. Interests and friendships are rather limited at baseline so not necessarily changed but does endorse some degree of anhedonia. Appetite "same", light sleeper. He still has aversions to swallowing things/including pills and prefers capsules that "don't make me sick". He is somewhat ambivalent about degree of involvement in family in medical decision making. Physical Exam Psychiatric Orientation: alert and cooperative Apperance: appropriately dressed, appropriately groomed and appeared stated age Eye Contact: + poor eye contact No eye contact, gaze averted. Motor Behavior: steady gait and station and no abnormal motor movements Speech: normal rate/rhythm/volume of speech Affect: + blunted affect "Good." Thought Process: goal directed thought process Thought Content: reality based without delusions Suicidal Thoughts: denies suicidal thoughts Homicidal Thoughts: denies homicidal thoughts Hallucinations: no auditory hallucinations Cognition: recent memory grossly intact, attention grossly intact and language grossly intact Insight: + limited insight Judgement: + limited judgement Vital Signs (Past 24 Hours) Last Vital Signs Temp 36.7 C 07/31/19 06:45 Pulse 75 07/31/19 06:45 Resp 18 07/31/19 06:45 BP 136/82 07/31/19 06:45 Pulse Ox 100 07/26/19 17:29 Principal Diagnosis Autism spectrum disorder Major depressive disorder, single episode, severe without psychosis. Psychiatric Data The patient was hospitalized for 5 days. On admission, he was started on fluoxetine to target depressive symptoms, and tolerated it well. He consistently denied suicidal thoughts throughout his stay. He was socially isolated, doing puzzles, with limited engagement in conversation and groups during the first part of his hospitalization. He had a family meeting with the manager social services and his parents, which he did not participate in and did not go well. The manager social services met with him afterwards to process, and he was resistant to communicating, but eventually stated that he hates his job because everyone is mean to him. He also processed his relationship with his parents, and that he has been fighting with them about how much time he spends on the computer. He says that his friends online are his only friends and that he does not want to go out and try to meet people, and could not identify what types of relationships he might want to develop. He said he has thought about going back to school, but does not know what he wants to do. He has worked with [employer] in the past, but did not feel it was helpful because they could not tell him what he was interested in. He stated he feels he has always been depressed, but mood worsened since he started working. He spent the rest of the day in bed isolating, and refused groups. His parents confirmed that guns and knives were removed from the home and the patient would not have access to them. The following day, the patient had a second family meeting with his parents, which went well. The manager social services noted improved eye contact, more euthymic affect with smiling and laughing. His mother also reported that the patient sounded like he was doing better, and they made plans to start an exercise program at home. They agreed on the discharge plan for the following day. He began attending and participating in groups, and was interacting with others appropriately, and spending free time out of his room. Care was coordinated with his outpatient therapist, and he was referred for psychiatric care. Day of Discharge Assessment Staff report the patient has been attending all unit programming, appears more confident during interpersonal interactions, and has been spending time in the activity room working on puzzles. On my assessment, he reports mood is "good," and improved from admission. He denies side effects to medication, and denies suicidal thoughts since admission to the hospital. He is feeling more optimistic about the future, and says he had a good family meeting yesterday, and that his parents are supportive. He feels he would be able to go to his mother in the future if he is not doing well, and has struggled to do this in the past. He is able to review coping skills, primarily playing video games on his computer, and also enjoys spending time with his dogs. He is looking forward to going home so that he can sleep in his own bed and chat with his friends online. He struggles to identify goals to expand socialization, stating he does not think he would want to be friends with anyone who lives in his area because "all the people around here are assholes." He does not desire to change his behavior, and does not really want to continue to work, but understands this is expected of him. He says he does not know when his next shift at [employer] is, as his schedule is at home. He denies any safety concerns with discharge. Transition of Care Transition Of Care Record: was reviewed with the patient Advance Directives Advance Directives Information Provided: Yes Advance Directives: No Mental Health Advance Directive: No Advance Directives on File: No Living Will: No Power of Sr. Logistics Analyst: No Advance Directives Reason:: Declines as Mental Health Visit. Risk Factors Assessment Risk factors were mitigated by admission to the inpatient unit, use of medications to target depressive symptoms, education about his diagnoses and treatment recommendations, coordination of care with his outpatient therapist and referring him for medication management, involving him in groups and therapy, working on healthy coping skills and a discharge safety plan, and multiple family meetings with parents whom he lives with. He has demonstrated improvement in mood, resolution of suicidal thoughts, and has been active in treatment, attending and participating in groups, and is able to review his safety plan. He is performing ADLs independently, and both he and his parents are comfortable with discharge today. He is no longer at acute risk of harm to himself, so can be managed as an outpatient at this time. He is not at increased risk for harm to others and does not have current risk factors for violence. Male: Yes : Yes Do You Have Access To A Gun?: No (mother secured his pistol and a double barrel shot gun he keeps in room.) Health Problems: No Mental Health Diagnoses: Yes Substance Use Disorders: No Previous Attempt: No Hopelessness: No Smoker: No Protective Factors Assessment : No Responsible for Young Children: No Employed: Yes (full-time @[employer]) Stable Relationships: Yes Supportive Family: Yes Good Rapport with Provider: Yes Tobacco Cessation at Discharge Tobacco Cessation Medication Prescribed at Discharge: Not Applicable/Non-Smoker Total Time Total Time Spent: Greater Than 30 Minutes Total Time Includes: Examination of the patient, Discharge Planning and Medication Reconciliation Discharge Data Lab Results 07/26/19 07/26/19 07/26/19 13:05 13:05 13:20 WBC 9.26 RBC 5.73 Hgb 16.6 Hct 48.7 MCV 85.0 MCH 29.0 MCHC 34.1 RDW Std Deviation 41.6 RDW Coeff of Ulices 13.5 Plt Count 253 MPV 11.0 H Immature Gran % (Auto) 0.3 Neut % (Auto) 64.6 Lymph % (Auto) 24.5 Davison % (Auto) 7.8 Eos % (Auto) 2.6 Baso % (Auto) 0.2 Immature Gran # (Auto) 0.03 H Neut # (Auto) 5.98 Lymph # (Auto) 2.27 Davison # (Auto) 0.72 H Eos # (Auto) 0.24 Baso # (Auto) 0.02 Sodium Potassium Chloride Carbon Dioxide Anion Gap BUN Creatinine Est Cr Clr Drug Dosing Est GFR ( Amer) Est GFR (Non-Af Amer) BUN/Creatinine Ratio Glucose Calcium Total Bilirubin AST ALT Alkaline Phosphatase Total Protein Albumin Globulin Albumin/Globulin Ratio TSH Urine Color Yellow Urine Appearance Clear Urine pH 5.5 Ur Specific [place] 1.024 Urine Protein Negative Urine Glucose (UA) Negative Urine Ketones Negative Urine Blood Negative Urine Nitrite Negative Urine Bilirubin Negative Urine Urobilinogen Negative Ur Leukocyte Esterase Negative Salicylates Urine Opiates Screen Neg Ur Methadone, Qual Neg Acetaminophen Urine Barbiturates Neg Ur Phencyclidine (PCP) Neg U Amphetamin/Meth Scrn Neg MDMA (Ecstasy) Screen Neg U Benzodiazepines Scrn Neg Ur Cocaine Metabolite Neg U Marijuana (THC) Screen Neg Ethyl Alcohol mg/dL 07/26/19 07/26/19 07/26/19 13:20 13:20 13:20 WBC RBC Hgb Hct MCV MCH MCHC RDW Std Deviation RDW Coeff of Ulices Plt Count MPV Immature Gran % (Auto) Neut % (Auto) Lymph % (Auto) Davison % (Auto) Eos % (Auto) Baso % (Auto) Immature Gran # (Auto) Neut # (Auto) Lymph # (Auto) Davison # (Auto) Eos # (Auto) Baso # (Auto) Sodium 142 Potassium 3.9 Chloride 108 H Carbon Dioxide 28 Anion Gap 6.0 BUN 15 Creatinine 0.86 Est Cr Clr Drug Dosing 172.9 Est GFR ( Amer) 145.7 Est GFR (Non-Af Amer) 125.7 BUN/Creatinine Ratio 17.5 Glucose 104 H Calcium 9.5 Total Bilirubin 0.5 AST 28 ALT 72 Alkaline Phosphatase 108 Total Protein 7.8 Albumin 4.3 Globulin 3.5 Albumin/Globulin Ratio 1.2 TSH 1.210 Urine Color Urine Appearance Urine pH Ur Specific [place] Urine Protein Urine Glucose (UA) Urine Ketones Urine Blood Urine Nitrite Urine Bilirubin Urine Urobilinogen Ur Leukocyte Esterase Salicylates < 1.7 L Urine Opiates Screen Ur Methadone, Qual Acetaminophen < 2 L Urine Barbiturates Ur Phencyclidine (PCP) U Amphetamin/Meth Scrn MDMA (Ecstasy) Screen U Benzodiazepines Scrn Ur Cocaine Metabolite U Marijuana (THC) Screen Ethyl Alcohol mg/dL < 3.0 Hospital Course (1) Depression with suicidal ideation: 07/26 The patient was admitted to the [facility] ([facility] unit) on q15 min checks (behavioral with suicide precautions) for safety. The patient will participate in group, recreational, and milieu therapies and will be offered additional individual and family sessions as clinically appropriate. Discussed a possible trial of Wellbutrin vs Prozac, will check with family if preference of antidepressant, Prozac does have long t 1/2 should he become activated, Effexor XR also a capsule should he refuse Wellbutrin. Patient then stated he thought he's taken that before. 07/27 Risks/benefits/alternatives reviewed re: antidepressants for the treatment of depression and/or anxiety. Discussion included but was not limited to FDA warnings re: suicidality in adolescents and young adults. The patient agreed to a trial of Prozac 10 mg daily. 07/28 -continue fluoxetine, refer for outpatient psychiatry. -Care coordinated with his therapist, Niels Rai, and [facility]. -Family meeting held with the patient's mother. She confirmed that guns and weapons (knives) have been removed from the home. 07/29 - Continue current medication regimen - Discharge timeline discussed with patient and mother, as patient had more limited engagement in treatment yesterday and did not participate fully in the scheduled family meeting. Discharge and safety planning goals were reviewed again with the patient. -Second family meeting before discharge - as stressors with parents were a contributing factor for his admission to begin with, and first family meeting went poorly. - PCP appointment scheduled to allow for further work-up of testicular lump reported by patient on admission 07/30 -Discharge to home. Prescription issued for fluoxetine 10 mg daily. Follow-up at [facility]. (2) Autism spectrum disorder: Mental Health & Subst Abuse Tx Psychiatrist Name of Psychiatrist: Emely Ch Psychiatrist's Date of Appointment with Psychiatrist: 08/05/19 Time of Appointment with Psychiatrist: 2:40pm Psychiatric Appointment Comment: Zoom meeting [facility]rap[facility]'s Date of Therapist Appointment: 08/04/19 Time of Therapist Appointment: 3:00pm Therapy Appointment Comment: [address] [facility] [address] Recovery Manager Name of Recovery Manager: None Post Discharge Appointments Primary Care Physician Name Of Family Doctor: Surendra [facility] Date of Appointment with PCP: 08/06/19 Provider Appointment Comment: [address] [place] [address] Smoking Cessation Counseling Tobacco Cessation Medication Prescribed at Discharge: Not Applicable/Non-Smoker Contact Information Discharge Discharge Address: [address] [place] [address], [place] [address] Discharge Plan Discharge Items Patient Disposition: Home - Self-Care Reason For Visit: MAJOR DEPRESSIVE DISORDER Discharge Diagnosis: Autism spectrum disorder Depression Activity: Per Instructions section Non-emergency contact: Psychiatrist and Therapist Call non-emergency contact if: you have any medication questions and your symptoms worsen Follow-up/Referrals: PCP,NO [Primary Care Provider] - Diet: Regular Addtl Attending Provider Instructions: SPECIAL CARE INSTRUCTIONS: 1. Follow through with your scheduled aftercare appointments. If unable to keep an appointment, please call to reschedule. 2. Take your medication only as prescribed. Medication should not be changed or stopped without the approval of your doctor. In the event of worsening symptoms or concerns about side effects, contact your doctor immediately. 3. Utilize new healthy coping skills, anger management skills, and stress management skills learned during your hospitalization. Journal feelings and process them with a support person. Identify stressors or situations that may result in relapse, deterioration or inappropriate behaviors and develop a plan to deal with those issues. 4. If your coping skills are ineffective and you are in crisis, contact your outpatient providers for direction. If unable to reach your providers, please call the CAN HELP LINE AT or go to the closest Emergency Room. 5. Avoid alcohol and un-prescribed drugs. 6. You have been provided with the Mental Health Advance Directives Pamphlet for your review. AFTERCARE APPOINTMENTS: * Please call your insurance company prior to your scheduled appointment to confirm your aftercare providers are covered. Take your insurance information to your appointments. WHO TO CALL AND WHEN: Medical Emergencies: For questions or emergencies related to your hospital stay, please contact the Inpatient Behavioral Health Unit at [phone]. A stem maker is on-call 25/09 for the Behavioral Health Unit for emergencies At any time you feel your situation is an emergency, you may also call 911 immediately. Your Doctors Instructions noted above were prepared by provider Marilee Hatfield MD. Pending Studies at Discharge: No Stand-Alone Forms: My [facility] [employer], Smoking Cessation, Suicide Prevention Resources Medications and DC Order Prescriptions: New fluoxetine 10 mg Capsule 10 mg PO QAM Qty: 30 RF: 0 No Action No Known Home Medications RF: 0 Discharge Orders: Discharge Order (Routine); Ordered 07/31/19 Ordered By: Marilee Hatfield Admission Data Admit Date/Time: 07/26/19 15:55 Attending Provider: Marilee Hatfield Admit Provider: Milagro Roblero Primary Care Provider: PCP,NO Other Interventions: PSY Interdisciplinary Discharge Planning Last Done: 07/31/19 07:55 Coding Level of Care Code 22965 D/C day mgmt > 30 min Diagnoses Depression with suicidal ideation F32.9; R45.851 Autism spectrum disorder F84.0
== END 2019-07-31 12:00 | disposition home or self-care (01) | DRG 885 ==
LOC: ED 12:50 → SUATTDRO 15:55 → 3S 15:55